=== PATIENT | female | born 1940 | race Caucasian/White ===

== ENCOUNTER 2022-04-11 21:27 | Observation (INO) | payer MEDICARE, BC ==
[2022-04-11 22:20] LABS: Platelet Count 87 10x3/uL (150-450)
[2022-04-11 22:21] LABS: #Eosinphils 0.2 10x3/uL (0.0-0.5); #Monocytes 0.5 10x3/uL (0.0-1.1); #Neutrophils 1.5 10x3/uL (1.5-8.4); %Basophils 1.2 % (0.0-2.0); %Eosinophils 4.5 % (0.0-6.0); %Lymphocytes 33.8 % (18.0-47.0); %Monocytes 14.2 % (0.0-10.0); Hemoglobin 12.5 g/dL (12.0-15.5); Mean Corpuscular HGB CONC 34.6 g/dL (32.0-36.0); Mean Corpuscular Hemoglobin 32.9 pg (27.0-33.0); Mean Platelet Volume 11.1 fl (7.4-10.4); RBC Distribution Width 13.5 % (11.5-14.5); White Blood Cell (WBC) Count 3.3 10x3/uL (3.5-10.5)
[2022-04-11 22:25] LABS: Anion Gap 13 mmol/L (10-20); BUN (Urea Nitrogen) 17 mg/dL (9.8-20.1); Calc. Creatinine Clearance 0 mL/min (70-130); Calcium 9.1 mg/dL (7.8-10.44); Carbon Dioxide 25 mmol/L (23-31); Chloride 102 mmol/L (98-107); Glucose 207 mg/dL (83-110); Lipase 48 U/L (8-78); Magnesium 1.8 mg/dL (1.6-2.6); Potassium 4.1 mmol/L (3.5-5.1); Sodium 136 mmol/L (136-145)
[2022-04-11 22:40] LABS: Bilirubin Neg (Negative); Blood, Urine 10 (Negative); Clarity Clear (Clear); Glucose, Urine (Dipstick) 250 mg/dL (Negative); Ketone, Urine Negative (Negative); Leukocyte Negative (Negative); Nitrite Negative (Negative); Protein, Urine (Dipstick) 30 mg/dl (Neg-Trace); Specific Gravity, Urine 1.015 (1.002-1.036); Urobilinogen Normal mg/dL (Less than 2)
[2022-04-11 22:49] LABS: Bacteria/HPF None Seen HPF (None Seen); RBC/HPF 0-3 HPF (0-3); Renal Epithelial 0-3 HPF (None Seen); Squamous Epithelial None Seen HPF (0-3); WBC/HPF 0-3 HPF (0-3)
[2022-04-11] MEDS ORDERED: Meclizine HCl 25 MG TAB ONE (23:13)
[2022-04-11 23:59] LABS: SARS-CoV-2 NAA Rapid Test Not Detected (NotDetected)
[2022-04-12] MEDS ORDERED: Dextrose 5% in Water 1,000 ML IV PRN (01:53)
[2022-04-12] MEDS ORDERED: HumaLOG 300 UNITS/3 ML VIAL SC PRN (01:53)
[2022-04-12] MEDS ORDERED: Dextrose 50% Abboject 50 ML SYRINGE SLOW IVP PRN (01:53)
[2022-04-12] MEDS ORDERED: Sodium Chloride 0.9% 1,000 ML IV SCH (02:00)
[2022-04-12 04:07] LABS: #Eosinphils 0.2 10x3/uL (0.0-0.5); #Monocytes 0.4 10x3/uL (0.0-1.1); #Neutrophils 1.6 10x3/uL (1.5-8.4); %Basophils 1.1 % (0.0-2.0); %Eosinophils 5.4 % (0.0-6.0); %Lymphocytes 36.8 % (18.0-47.0); %Monocytes 11.7 % (0.0-10.0); %Neutrophils 44.7 % (40.0-75.0); Hemoglobin 12.4 g/dL (12.0-15.5); Mean Corpuscular HGB CONC 34.8 g/dL (32.0-36.0); Mean Corpuscular Hemoglobin 32.6 pg (27.0-33.0); Mean Corpuscular Volume 93.7 fl (81.6-98.3); Mean Platelet Volume 11.4 fl (7.4-10.4); Platelet Count 81 10x3/uL (150-450); RBC Distribution Width 13.4 % (11.5-14.5); White Blood Cell (WBC) Count 3.5 10x3/uL (3.5-10.5)
[2022-04-12 04:10] LABS: Anion Gap 15 mmol/L (10-20); BUN (Urea Nitrogen) 13 mg/dL (9.8-20.1); Calc. Creatinine Clearance 0 mL/min (70-130); Calcium 9.1 mg/dL (7.8-10.44); Carbon Dioxide 28 mmol/L (23-31); Chloride 103 mmol/L (98-107); Glucose 149 mg/dL (83-110); Magnesium 1.7 mg/dL (1.6-2.6); Potassium 4.6 mmol/L (3.5-5.1); Sodium 141 mmol/L (136-145)
[2022-04-12 04:26] LABS: Thyroid Stimulating Hormone 1.6744 uIU/mL (0.35-4.94)
[2022-04-12 05:51] LABS: CKMB 1.9 ng/mL (0-6.6)
[2022-04-12] MEDS ORDERED: Enoxaparin Sodium 40 MG/0.4 ML SYRINGE SC SCH (09:00)
[2022-04-12 10:02] LABS: Troponin I 0.061 ng/mL (< 0.028)
== END 2022-04-12 14:20 | disposition home or self-care (01) ==
LOC: CSHERS 21:27 → CSHERHOLD 04-12 05:24
PROVIDERS: ADMIT Internal Medicine; ATTEND Internal Medicine
DX: R42 Dizziness and giddiness (principal); F03.90 Unspecified dementia, unspecified severity, without behavioral disturbance, psychotic disturbance, mood disturbance, and anxiety; Z20.822 Contact with and (suspected) exposure to COVID-19; E11.9 Type 2 diabetes mellitus without complications; I10 Essential (primary) hypertension
CPT/HCPCS: 51701; 70450; 70551; 71045; 80048 ×2; 82553; 82607; 82746; 82962 ×2; 83690; 83735 ×2; 84443; 84484 ×2; 85025 ×2; 93005; 93880; 96372; 99285; G0378; U0002; 36415; 36416; 81003; 81015; J1650; J7050

== ENCOUNTER 2022-06-04 09:30 | Inpatient (IN) | payer MEDICARE, BC ==
[2022-06-04 10:07] LABS: #Eosinphils 0.1 10x3/uL (0.0-0.5); #Monocytes 0.4 10x3/uL (0.0-1.1); #Neutrophils 1.4 10x3/uL (1.5-8.4); %Eosinophils 4.6 % (0.0-6.0); %Lymphocytes 34.8 % (18.0-47.0); %Monocytes 12.1 % (0.0-10.0); %Neutrophils 47.2 % (40.0-75.0); Hemoglobin 12.6 g/dL (12.0-15.5); Mean Corpuscular HGB CONC 34.3 g/dL (32.0-36.0); Mean Corpuscular Volume 96.1 fl (81.6-98.3); Mean Platelet Volume 11.4 fl (7.4-10.4); Platelet Count 83 10x3/uL (150-450); RBC Distribution Width 13.4 % (11.5-14.5); Red Blood Cell (RBC) Count 3.82 10x6/uL (3.90-5.03); White Blood Cell (WBC) Count 3.1 10x3/uL (3.5-10.5)
[2022-06-04 10:09] LABS: PTT 25.1 sec (22.0-33.0); Prothrombin Time 11.2 sec (9.5-12.1)
[2022-06-04] MEDS ORDERED: Nitroglycerin 2% Ointment 1 INCH/1 GM Packet ONE (10:11)
[2022-06-04 10:13] LABS: ALT (SGPT) 28 U/L (8-55); AST (SGOT) 35 U/L (5-34); Albumin 3.2 g/dL (3.4-4.8); Alkaline Phosphatase 151 U/L (40-110); Anion Gap 11 mmol/L (10-20); BUN (Urea Nitrogen) 16 mg/dL (9.8-20.1); Bilirubin, Total 0.9 mg/dL (0.2-1.2); Calc. Creatinine Clearance 0 mL/min (70-130); Carbon Dioxide 28 mmol/L (23-31); Chloride 105 mmol/L (98-107); Estimated GFR 70; Globulin 3.2 g/dL (2.4-3.5); Glucose 267 mg/dL (83-110); Potassium 4.2 mmol/L (3.5-5.1); Protein, Total 6.4 g/dL (5.8-8.1); Sodium 140 mmol/L (136-145)
[2022-06-04] MEDS ORDERED: Metoprolol Tartrate 5 MG/5 ML VIAL ONE (11:03)
[2022-06-04 11:29] LABS: SARS-CoV-2 NAA Rapid Test Not Detected (NotDetected)
[2022-06-04] MEDS ORDERED: Ondansetron PF 4 MG/2 ML Vial IVP PRN (11:55)
[2022-06-04] MEDS ORDERED: Ondansetron ODT 4 MG TAB PO PRN (11:55)
[2022-06-04] MEDS ORDERED: Dextrose 5% in Water 1,000 ML IV PRN (12:29)
[2022-06-04] MEDS ORDERED: Dextrose 50% Abboject 50 ML SYRINGE SLOW IVP PRN (12:29)
[2022-06-04] MEDS ORDERED: Iopamidol 370 76% 100 ML VIAL ONE (13:29)
[2022-06-04 14:08] LABS: Troponin I 0.023 ng/mL (< 0.028)
[2022-06-04 14:40] VITALS: BMI 28.0
[2022-06-04] MEDS: HumaLOG 300 UNITS/3 ML VIAL SC PRN ×2 (15:51→21:47)
[2022-06-04 16:04] LABS: Troponin I 0.041 ng/mL (< 0.028)
[2022-06-04] MEDS ORDERED: HumaLOG 300 UNITS/3 ML VIAL ONE (21:47)
[2022-06-05] MEDS: hydrALAZINE 20 MG/ML VIAL SLOW IVP PRN ×2 (01:04→23:47)
[2022-06-05 06:06] LABS: #Eosinphils 0.1 10x3/uL (0.0-0.5); #Monocytes 0.6 10x3/uL (0.0-1.1); #Neutrophils 3.2 10x3/uL (1.5-8.4); %Basophils 0.6 % (0.0-2.0); %Lymphocytes 19.4 % (18.0-47.0); %Monocytes 12.4 % (0.0-10.0); %Neutrophils 65.4 % (40.0-75.0); Hemoglobin 12.7 g/dL (12.0-15.5); Mean Corpuscular HGB CONC 34.8 g/dL (32.0-36.0); Mean Corpuscular Hemoglobin 32.6 pg (27.0-33.0); Mean Corpuscular Volume 93.8 fl (81.6-98.3); Mean Platelet Volume 11.6 fl (7.4-10.4); Platelet Count 88 10x3/uL (150-450); RBC Distribution Width 13.5 % (11.5-14.5); Red Blood Cell (RBC) Count 3.89 10x6/uL (3.90-5.03); White Blood Cell (WBC) Count 4.9 10x3/uL (3.5-10.5)
[2022-06-05 06:11] LABS: Anion Gap 11 mmol/L (10-20); BUN (Urea Nitrogen) 16 mg/dL (9.8-20.1); Calc. Creatinine Clearance 63 mL/min (70-130); Carbon Dioxide 27 mmol/L (23-31); Chloride 107 mmol/L (98-107); Estimated GFR 75; Glucose 246 mg/dL (83-110); Potassium 4.6 mmol/L (3.5-5.1); Sodium 140 mmol/L (136-145)
[2022-06-05] MEDS: HumaLOG 300 UNITS/3 ML VIAL SC PRN ×2 (07:02→11:36)
[2022-06-05] MEDS: Acetaminophen 325 MG TAB PO PRN (09:08)
[2022-06-05] MEDS ORDERED: Lisinopril 5 MG TAB PO SCH (11:15)
[2022-06-05] MEDS: Lisinopril 5 MG TAB PO SCH (11:36)
[2022-06-05 13:39] LABS: Hemoglobin A1c 8.9 % (4.0-6.0)
[2022-06-05] MEDS: Rosuvastatin 10 MG TAB PO SCH (20:44)
[2022-06-06 04:53] LABS: #Monocytes 0.7 10x3/uL (0.0-1.1); %Basophils 0.4 % (0.0-2.0); %Eosinophils 0.6 % (0.0-6.0); %Lymphocytes 13.4 % (18.0-47.0); %Monocytes 12.7 % (0.0-10.0); %Neutrophils 72.7 % (40.0-75.0); Hemoglobin 12.7 g/dL (12.0-15.5); Mean Corpuscular HGB CONC 35.1 g/dL (32.0-36.0); Mean Corpuscular Hemoglobin 32.9 pg (27.0-33.0); Mean Corpuscular Volume 93.8 fl (81.6-98.3); Mean Platelet Volume 11.8 fl (7.4-10.4); Platelet Count 101 10x3/uL (150-450); RBC Distribution Width 13.9 % (11.5-14.5); Red Blood Cell (RBC) Count 3.86 10x6/uL (3.90-5.03); White Blood Cell (WBC) Count 5.5 10x3/uL (3.5-10.5)
[2022-06-06 05:01] LABS: Anion Gap 13 mmol/L (10-20); BUN (Urea Nitrogen) 24 mg/dL (9.8-20.1); Calc. Creatinine Clearance 47 mL/min (70-130); Calcium 8.7 mg/dL (7.8-10.44); Carbon Dioxide 23 mmol/L (23-31); Cardiac Risk 2.5 (Less than 4.5); Chloride 105 mmol/L (98-107); Cholesterol 140 mg/dl (< 200 Desired); Estimated GFR 53; Glucose 201 mg/dL (83-110); HDL Cholesterol 57 mg/dL (>60 Neg Risk); LDL Cholesterol, Calculated 70 mg/dL; Sodium 137 mmol/L (136-145); Triglycerides 64 mg/dL (Less than 150)
[2022-06-06] MEDS: HumaLOG 300 UNITS/3 ML VIAL SC PRN (07:10)
[2022-06-06] MEDS: Aspirin 81 mg Enteric Coated Tablet PO SCH (09:22)
[2022-06-06] MEDS: Lisinopril 5 MG TAB PO SCH (09:22)
[2022-06-06 10:18] LABS: Bilirubin Neg (Negative); Blood, Urine Negative (Negative); Clarity Clear (Clear); Glucose, Urine (Dipstick) >=1000 mg/dL (Negative); Ketone, Urine 5 mg/dL (Negative); Leukocyte 25 (Negative); Nitrite Negative (Negative); Protein, Urine (Dipstick) 30 mg/dl (Neg-Trace)
[2022-06-06 10:19] LABS: Urine Culture Reflex No No
[2022-06-06 10:31] LABS: RBC/HPF 0-3 HPF (0-3); Squamous Epithelial 0-3 HPF (0-3); WBC/HPF 0-3 HPF (0-3)
[2022-06-06 10:49] LABS: Bacteria/HPF 1+ HPF (None Seen)
[2022-06-06] MEDS: Acetaminophen 325 MG TAB PO PRN (20:53)
[2022-06-06] MEDS: Rosuvastatin 10 MG TAB PO SCH (20:53)
[2022-06-07 04:33] LABS: #Eosinphils 0.1 10x3/uL (0.0-0.5); #Monocytes 0.6 10x3/uL (0.0-1.1); #Neutrophils 2.1 10x3/uL (1.5-8.4); %Basophils 0.5 % (0.0-2.0); %Eosinophils 2.6 % (0.0-6.0); %Lymphocytes 32.4 % (18.0-47.0); %Monocytes 14.4 % (0.0-10.0); %Neutrophils 50.1 % (40.0-75.0); Hemoglobin 11.8 g/dL (12.0-15.5); Mean Corpuscular HGB CONC 34.6 g/dL (32.0-36.0); Mean Corpuscular Hemoglobin 32.9 pg (27.0-33.0); Mean Platelet Volume 11.5 fl (7.4-10.4); Platelet Count 82 10x3/uL (150-450); RBC Distribution Width 14.1 % (11.5-14.5); Red Blood Cell (RBC) Count 3.59 10x6/uL (3.90-5.03); White Blood Cell (WBC) Count 4.2 10x3/uL (3.5-10.5)
[2022-06-07 04:35] LABS: Anion Gap 10 mmol/L (10-20); BUN (Urea Nitrogen) 38 mg/dL (9.8-20.1); Calc. Creatinine Clearance 46 mL/min (70-130); Calcium 8.6 mg/dL (7.8-10.44); Carbon Dioxide 24 mmol/L (23-31); Chloride 106 mmol/L (98-107); Estimated GFR 52; Glucose 186 mg/dL (83-110); Potassium 4.1 mmol/L (3.5-5.1); Sodium 136 mmol/L (136-145)
[2022-06-07] MEDS: HumaLOG 300 UNITS/3 ML VIAL SC PRN ×2 (05:51→12:26)
[2022-06-07] MEDS: Aspirin 81 mg Enteric Coated Tablet PO SCH (08:19)
[2022-06-07] MEDS: hydrALAZINE 20 MG/ML VIAL SLOW IVP PRN (12:26)
[2022-06-07] MEDS: Ampicillin/Sulbactam 1.5 GM in Sodium Chloride 0.9% 100 ML IVPB SCH ×2 (14:39→20:21)
[2022-06-07] MEDS: Rosuvastatin 10 MG TAB PO SCH (20:21)
[2022-06-08 05:02] LABS: Hemoglobin 12.4 g/dL (12.0-15.5); Mean Corpuscular Hemoglobin 33.2 pg (27.0-33.0); Mean Corpuscular Volume 94.9 fl (81.6-98.3); Mean Platelet Volume 11.4 fl (7.4-10.4); RBC Distribution Width 14.1 % (11.5-14.5); Red Blood Cell (RBC) Count 3.73 10x6/uL (3.90-5.03); White Blood Cell (WBC) Count 4.2 10x3/uL (3.5-10.5)
[2022-06-08 05:05] LABS: Anion Gap 11 mmol/L (10-20); BUN (Urea Nitrogen) 45 mg/dL (9.8-20.1); Calc. Creatinine Clearance 47 mL/min (70-130); Calcium 8.7 mg/dL (7.8-10.44); Carbon Dioxide 25 mmol/L (23-31); Chloride 106 mmol/L (98-107); Estimated GFR 52; Glucose 238 mg/dL (83-110); Potassium 4.6 mmol/L (3.5-5.1); Sodium 137 mmol/L (136-145)
[2022-06-08 05:06] LABS: Platelet Count 97 10x3/uL (150-450)
[2022-06-08 05:30] LABS: MDiff Complete? YES
[2022-06-08 05:33] LABS: Eosinophils 1 % (0-10); Lymphocytes 26 % (21-51); Monocytes 13 % (0-10); Neutrophil 59 % (42-75)
[2022-06-08 05:34] LABS: Platelet Morphology Comment Appears Decreased; RBC Morphology Normal
[2022-06-08] MEDS: Ampicillin/Sulbactam 1.5 GM in Sodium Chloride 0.9% 100 ML IVPB SCH ×3 (05:56→22:27)
[2022-06-08] MEDS: HumaLOG 300 UNITS/3 ML VIAL SC PRN ×3 (06:35→22:41)
[2022-06-08] MEDS: Lisinopril 5 MG TAB PO SCH (09:17)
[2022-06-08] MEDS: Aspirin 81 mg Enteric Coated Tablet PO SCH (09:17)
[2022-06-08] MEDS: metFORMIN 500 MG TAB PO SCH (17:18)
[2022-06-08] MEDS: Rosuvastatin 10 MG TAB PO SCH (22:28)
[2022-06-08] MEDS: hydrALAZINE 20 MG/ML VIAL SLOW IVP PRN (22:36)
[2022-06-09] MEDS: Acetaminophen 325 MG TAB PO PRN (02:16)
[2022-06-09 04:40] LABS: Hemoglobin 11.4 g/dL (12.0-15.5); Mean Corpuscular HGB CONC 33.9 g/dL (32.0-36.0); Mean Corpuscular Hemoglobin 32.9 pg (27.0-33.0); Mean Corpuscular Volume 96.8 fl (81.6-98.3); Mean Platelet Volume 11.8 fl (7.4-10.4); Platelet Count 102 10x3/uL (150-450); Red Blood Cell (RBC) Count 3.47 10x6/uL (3.90-5.03); White Blood Cell (WBC) Count 4.5 10x3/uL (3.5-10.5)
[2022-06-09 04:54] LABS: Anion Gap 11 mmol/L (10-20); BUN (Urea Nitrogen) 39 mg/dL (9.8-20.1); Calc. Creatinine Clearance 63 mL/min (70-130); Calcium 8.4 mg/dL (7.8-10.44); Carbon Dioxide 22 mmol/L (23-31); Chloride 106 mmol/L (98-107); Estimated GFR 74; Glucose 156 mg/dL (83-110); Sodium 135 mmol/L (136-145)
[2022-06-09 05:15] LABS: MDiff Complete? YES
[2022-06-09 05:20] LABS: Eosinophils 3 % (0-10); Lymphocytes 28 % (21-51); Monocytes 16 % (0-10); Neutrophil 52 % (42-75)
[2022-06-09 05:21] LABS: Platelet Morphology Comment Appears Adequate
[2022-06-09 05:22] LABS: RBC Morphology Normal
[2022-06-09] MEDS: Ampicillin/Sulbactam 1.5 GM in Sodium Chloride 0.9% 100 ML IVPB SCH (05:54)
[2022-06-09] MEDS: Lisinopril 5 MG TAB PO SCH (08:53)
[2022-06-09] MEDS: metFORMIN 500 MG TAB PO SCH (08:53)
[2022-06-09] MEDS: Aspirin 81 mg Enteric Coated Tablet PO SCH (08:53)
[2022-06-09 11:45] VITALS: BP 132/59; TEMP 97.5
== END 2022-06-09 16:42 | disposition home or self-care (01) | DRG 68 ==
LOC: CSHERS 09:30 → CSHERHOLD 11:59 → CSHTELE 13:40 → OBSVTOIN 06-05 10:02
PROVIDERS: ADMIT Internal Medicine; ATTEND Internal Medicine Geriatric Medicine
DX: I65.23 Occlusion and stenosis of bilateral carotid arteries (principal); J98.11 Atelectasis; N39.0 Urinary tract infection, site not specified; E11.9 Type 2 diabetes mellitus without complications; F03.90 Unspecified dementia, unspecified severity, without behavioral disturbance, psychotic disturbance, mood disturbance, and anxiety; Z20.822 Contact with and (suspected) exposure to COVID-19; I16.0 Hypertensive urgency; I35.0 Nonrheumatic aortic (valve) stenosis; E78.5 Hyperlipidemia, unspecified; B95.2 Enterococcus as the cause of diseases classified elsewhere; Z79.82 Long term (current) use of aspirin; Z79.899 Other long term (current) drug therapy; Z90.49 Acquired absence of other specified parts of digestive tract; Z90.710 Acquired absence of both cervix and uterus
CPT/HCPCS: 36415; 36416; 70450; 70496; 70498; 71045; 80048; 80053; 80061; 81001; 83036; 83880; 84484; 85025; 85610; 85730; 87077; 87086; 87186; 93005; 93306; 94760; 96374; G0378; J0295; J0360; J1815; J3490; Q0162; Q9967; U0002